=== PATIENT | male | born 1990 | race Caucasian/White ===

== ENCOUNTER 2019-01-15 09:40 | Emergency (ER) | payer OTHER ==
[2019-01-15] MEDS ORDERED: Diphtheria,Pertussis(Acell),Tetanus Vaccine 0.5 ML Syringe IM ONE (10:15)
[2019-01-15] MEDS ORDERED: Bacitracin Oint 1 GM U/D Packet TOP ONE (10:16)
[2019-01-15] MEDS ORDERED: Lidocaine 1% 10 ML MDV INJECT ONE (10:16)
[2019-01-15] MEDS ORDERED: ceFAZolin 1 GM Vial IM ONE (10:19)
--- NOTE | 2019-01-15 10:28 | CR ---
Indication: Crush injury. Technique: Three views of the right 2nd finger were obtained. Comparison: None Findings: The comminuted fracture of the tuft of the distal phalanx of the right 2nd digit is identified. The joint spaces are well maintained. Impression: Comminuted fracture of the tuft of the distal phalanx of the right 2nd finger. Dictated by Rosita Newberry MD @ Jan 15 2019 10:27AM Signed by Dr. Rosita Newberry @ Jan 15 2019 10:28AM
--- NOTE | 2019-01-15 10:32 | EDM.PDOC ---
ED HPI GENERAL MEDICAL PROBLEM - General Chief Complaint: Laceration Stated Complaint: SMASHED FINGERS ON RT HAND Time Seen by Provider: 01/15/19 10:10 Source of Information: Reports: Patient, Other (Friend) History Limitations: Reports: Language Barrier - History of Present Illness INITIAL COMMENTS - FREE TEXT/NARRATIVE: HISTORY AND PHYSICAL: History of present illness: Patient is primarily speaking and is in the ED today with a friend who is translating for patient. Sonography Technician was offered to patient but he declines requesting his friend for translation. Patient is a 28-year-old male presents to the ED today for concern of slamming his right pointer finger in a piece of metal machinery at work. Patient states this occurred just prior to arrival to the ED. Patient states his last tetanus was likely over 5 years ago. Patient denies any prior trauma to the hand. Patient denies any other injuries or symptoms at this time. Patient denies any health history. Patient denies fever, chills, chest pain, shortness of breath, or cough. Denies headache, neck stiff ness, change in vision, syncope, or near syncope. Denies nausea, vomiting, abdominal pain, diarrhea, constipation, or dysuria. Has not noted any blood in urine or stool. Patient has been eating and drinking appropriately. Review of systems: As per history of present illness and below otherwise all systems reviewed and negative. Past medical history: As per history of present illness and as reviewed below otherwise noncontributory. Surgical history: As per history of present illness and as reviewed below otherwise noncontributory. Social history: See social history for further information Family history: As per history of present illness and as reviewed below otherwise noncontributory. Physical exam: General: Patient is alert, oriented, and in no acute distress. Patient sitting comfortably on exam table. HEENT: Atraumatic, normocephalic, pupils equal and reactive bilaterally, negative for conjunctival pallor or scleral icterus, mucous membranes moist, TMs normal bilaterally, throat clear, neck supple, nontender, trachea midline. No drooling or trismus noted. No meningeal signs. No hot potato voice noted. Lungs: Clear to auscultation, breath sounds equal bilaterally, chest nontender. Heart: S1S2, regular rate and rhythm without overt murmur Abdomen: Soft, nondistended, nontender. Negative for masses or hepatosplenomegaly. Negative for costovertebral tenderness. Pelvis: Stable nontender. Genitourinary: Deferred. Rectal: Deferred. Skin: Intact, warm, dry. No lesions or rashes noted. Extremities: Negative for cords or calf pain. Neurovascular unremarkable. There is a 1.5 cm laceration of the right hand, distal 2nd digit, just distal to the base of the nail. The laceration does involve the most distal part of the nail bed but is not avulsed. Patient does have full range of motion of the complete right upper extremity including the affected finger. Radial pulses grossly intact and capillary refill is less than 2 seconds. Neuro: Awake, alert, oriented. Cranial nerves II through XII unremarkable. Cerebellum unremarkable. Motor and sensory unremarkable throughout. Exam nonfocal. Notes: Dr. Man directly involved in patient care. The laceration is not able to be sutured due to involvement of nail base. Finger was splinted and dressed. Discussed the importance of follow up with hand specialist in [place] and need for appointment in the next few days. Number was provided to patient to call and set up this appointment. Voices understanding and is agreeable to plan of care. Denies any further questions or concerns at this time. Diagnostics: Hand XR Therapeutics: Tdap, Ancef, Lidocaine, Bacitracin, Finger Splint with tube gauze dressing Prescription: Bactrim DS Impression: 2nd digit open tuft fracture, right Plan: 1. Take medication as prescribed. Follow-up with the hand specialist as discussed. The number has been provided to you above. Call in the morning for an appointment. 2. You can alternate ibuprofen and Tylenol as directed for pain and discomfort. Return to the ED as needed and as discussed. Definitive disposition and diagnosis as appropriate pending reevaluation and review of above. right 2nd finger Pain Score (Numeric/FACES): 10 - Related Data Allergies Allergy/AdvReac Type Severity Reaction Status Date / Time Penicillins Allergy Rash Verified 01/15/19 09:51 Home Meds: Home Meds . [No Known Home Meds] 01/15/19 [History] Past Medical History - Past Health History Medical/Surgical History: Denies Medical/Surgical History - Infectious Disease History Infectious Disease History: Reports: None Social & Family History - Family History Family Medical History: Noncontributory - Tobacco Use Smoking Status *Q: Never Smoker - Recreational Drug Use Recreational Drug Use: No ED ROS GENERAL - Review of Systems Review Of Systems: ROS reveals no pertinent complaints other than HPI. ED EXAM, SKIN/RASH Exam: See Below (See dictation) Course - Vital Signs Last Recorded V/S: Last Vital Signs Temp 36.1 C 01/15/19 09:51 Pulse 68 01/15/19 11:29 Resp 18 01/15/19 11:29 BP 124/71 01/15/19 11:29 Pulse Ox 98 01/15/19 11:29 - Orders/Labs/Meds Orders: Active Orders 24 hr Category Date Time Status Vaccines to be Administered [RC] PER UNIT ROUTINE Care 01/15/19 10:16 Ordered Meds: Medications Discontinued Medications Generic Name Dose Route Start Last Admin Trade Name Freq PRN Reason Stop Dose Admin Bacitracin 1 dose 01/15/19 10:16 01/15/19 10:41 Bacitracin Oint 1 Gm TOP 01/15/19 10:17 1 dose ONETIME ONE Administration Cefazolin Sodium 1 gm 01/15/19 10:19 01/15/19 10:40 Ancef IM 01/15/19 10:20 1 gm ONETIME ONE Administration Diphtheria/Tetanus/Acell Pertussis 0.5 ml 01/15/19 10:15 01/15/19 10:41 Adacel IM 01/15/19 10:16 0.5 ml .ONCE ONE Administration Lidocaine HCl Confirm 01/15/19 10:18 01/15/19 10:42 Xylocaine-Mpf 1% Administered 01/15/19 10:19 10 mls/hr Dose Administration 10 mls @ as directed .ROUTE .STK-MED ONE Sterile Water Confirm 01/15/19 10:36 01/15/19 10:41 Sterile Water For Injection Administered 01/15/19 10:37 2.5 mls/hr Dose Administration 20 mls @ as directed .ROUTE .STK-MED ONE Lidocaine HCl 10 ml 01/15/19 10:16 01/15/19 10:42 Xylocaine 1% INJECT 01/15/19 10:17 Not Given ONETIME ONE Departure - Departure Time of Disposition: 11:16 Disposition: Home, Self-Care 01 Clinical Impression: Open fracture of tuft of distal phalanx of finger - Discharge Information Instructions: Finger Fracture, Adult, [id number] Referrals: PCP,None [Primary Care Provider] - Forms: ED Department Discharge Additional Instructions: The following information is given to patients seen in the emergency department who are being discharged to home. This information is to outline your options for follow-up care. We provide all patients seen in our emergency department with a follow-up referral. The need for follow-up, as well as the timing and circumstances, are variable depending upon the specifics of your emergency department visit. If you don't have a primary care physician on staff, we will provide you with a referral. We always advise you to contact your personal physician following an emergency department visit to inform them of the circumstance of the visit and for follow-up with them and/or the need for any referrals to a consulting specialist. The emergency department will also refer you to a specialist when appropriate. This referral assures that you have the opportunity for follow-up care with a specialist. All of these measure are taken in an effort to provide you with optimal care, which includes your follow-up. Under all circumstances we always encourage you to contact your private physician who remains a resource for coordinating your care. When calling for follow-up care, please make the office aware that this follow-up is from your recent emergency room visit. If for any reason you are refused follow-up, please contact the [facility] Emergency Department at and asked to speak to the emergency department charge nurse. [facility] [address] [place] [id number] [address] [address] Hand and Wrist Surgery, Dr. Stacey MD [address] [place] [id number], 3rd floor 1. Take medication as prescribed. Follow-up with the hand specialist as discussed. The number has been provided to you above. Call in the morning for an appointment. 2. You can alternate ibuprofen and Tylenol as directed for pain and discomfort. Return to the ED as needed and as discussed. - My Orders Last 24 Hours: My Active Orders 01/15/19 10:16 Vaccines to be Administered [RC] PER UNIT ROUTINE - Assessment/Plan Last 24 Hours: My Active Orders 01/15/19 10:16 Vaccines to be Administered [RC] PER UNIT ROUTINE
[2019-01-15] MEDS ORDERED: Water For Injection, Sterile 20 ML ONE (10:36)
== END 2019-01-15 11:30 | disposition home or self-care (01) ==
LOC: MW.ED 09:40
DX: S62.630B Displaced fracture of distal phalanx of right index finger, initial encounter for open fracture (principal); Z88.0 Allergy status to penicillin; Z23 Encounter for immunization; W23.1XXA Caught, crushed, jammed, or pinched between stationary objects, initial encounter
CPT/HCPCS: 29130; 73140; 90471; 90715; 96372; 99283; J0690; J2001; 99284